=== PATIENT | male | born 1985 | race Caucasian/White ===

== ENCOUNTER 2019-05-19 17:25 | Inpatient (IN) | payer OTHER ==
[~2019-05-19] VITALS: Ht 193 cm; Wt 102.1 kg
[2019-05-19 17:26] VITALS: BP 202/107
[2019-05-19 17:46] LABS: ABSOLUTE NEUTROPHILS 4.9 thou/uL (1.4-8.2); BASOPHILS 0.8 % (0.0-2.0); EOSINOPHILS 2.2 % (0.0-3.0); HEMATOCRIT 50.5 % (42.0-52.0); HEMOGLOBIN 17.4 gm/dL (14.0-18.0); LYMPHOCYTES 29.1 % (24.0-44.0); MCH 30.2 pg (26.0-34.0); MCHC 34.4 g/dL (28.0-37.0); MCV 87.6 fL (80.0-100.0); MONOCYTES 10.8 % (1.0-8.0); PLATELET COUNT 268 thou/uL (150-400); POLYS 57.1 % (36.0-66.0); RBC 5.76 mil/uL (4.50-6.00); RDW 12.8 % (10.5-14.5); WBC 8.6 thou/uL (4.0-11.0)
[2019-05-19 17:53] LABS: ANION GAP 11 mmol/L (7-16); BUN 16 mg/dL (7-18); CALCIUM 9.8 mg/dL (8.5-10.1); CHLORIDE 99 mmol/L (98-107); CO2 29 mmol/L (21-32); CREATININE 1.1 mg/dL (0.7-1.3); GLUCOSE 122 mg/dL (74-106); POTASSIUM 3.4 mmol/L (3.5-5.1); SODIUM 139 mmol/L (136-145)
[2019-05-19 18:04] LABS: ALBUMIN 4.7 g/dL (3.4-5.0); LIPASE 129 U/L (73-393); SGOT 53 U/L (15-37); SGPT 148 U/L (30-65); TOTAL BILIRUBIN 0.6 mg/dL (<0.1-1.0); TOTAL PROTEIN 8.7 g/dL (6.4-8.2); TROPONIN-I <0.06 ng/mL (<0.06)
[2019-05-19 20:27] VITALS: BP 169/109
[2019-05-19 20:42] LABS: CHOLESTEROL 182 mg/dL (<200); HDL CHOLESTEROL 33 mg/dL (>40); LDL CHOLESTEROL 115 mg/dL (<100); TC:HDL 5.5 Ratio (Not establshd); TRIGLYCERIDE 170 mg/dL (<150); VLDL 34 mg/dL (<40)
[2019-05-19 20:44] LABS: SERUM ASSESSMENT Clear
[2019-05-19 20:56] VITALS: BP 160/93
[2019-05-19 21:25] VITALS: BP 163/110
[2019-05-19 23:57] VITALS: BP 142/86
[2019-05-20] VITALS (7 sets, daily range): BP systolic 117–156; BP diastolic 67–91
[2019-05-20 03:10] LABS: GLYCOHEMOGLOBIN (HGB A1C) 5.1 % (4.8-5.6)
[2019-05-20 04:42] LABS: CALCIUM 8.9 mg/dL (8.5-10.1)
[2019-05-20 04:47] LABS: POTASSIUM 4.5 mmol/L (3.5-5.1)
[2019-05-20] MEDS ORDERED: LIPITOR 20 MG T20 M1 PO (09:46)
[2019-05-20] MEDS ORDERED: BENICAR40 MG PO (09:46)
--- NOTE | 2019-05-22 15:58 | EKG ---
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
--- NOTE | 2019-05-22 16:01 | EKG ---
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
== END 2019-05-20 18:45 | disposition home or self-care (01) | DRG 305 ==
LOC: ER 17:25 → EROBS 19:58 → 2N 21:00
PROVIDERS: Nurse Practitioner Family; ADMIT Internal Medicine
DX: I16.0 Hypertensive urgency (principal); I10 Essential (primary) hypertension; F41.9 Anxiety disorder, unspecified; F32.9 Major depressive disorder, single episode, unspecified; E78.5 Hyperlipidemia, unspecified; Z53.29 Procedure and treatment not carried out because of patient's decision for other reasons; R07.9 Chest pain, unspecified; Z82.49 Family history of ischemic heart disease and other diseases of the circulatory system; Z82.3 Family history of stroke; Z83.3 Family history of diabetes mellitus
CPT/HCPCS: 10081

== ENCOUNTER 2019-05-29 18:48 | Emergency (ER) | payer OTHER ==
[~2019-05-29] VITALS: Ht 193 cm; Wt 102.1 kg
[~2019-05-29 18:48] MED LIST: BENICAR40 MG PO; LIPITOR 20 MG T20 M1 PO
[2019-05-29 20:11] LABS: ABSOLUTE NEUTROPHILS 5.5 thou/uL (1.4-8.2); BASOPHILS 0.5 % (0.0-2.0); HEMATOCRIT 48.8 % (42.0-52.0); HEMOGLOBIN 17.1 gm/dL (14.0-18.0); LYMPHOCYTES 21.3 % (24.0-44.0); MCH 30.5 pg (26.0-34.0); MCV 87.2 fL (80.0-100.0); MONOCYTES 10.8 % (1.0-8.0); PLATELET COUNT 214 thou/uL (150-400); POLYS 66.4 % (36.0-66.0); RBC 5.59 mil/uL (4.50-6.00); RDW 12.7 % (10.5-14.5); WBC 8.2 thou/uL (4.0-11.0)
[2019-05-29 20:24] LABS: CALCIUM 9.8 mg/dL (8.5-10.1)
[2019-05-29 20:27] LABS: POTASSIUM 2.9 mmol/L (3.5-5.1)
[2019-05-29] MEDS ORDERED: IBUPROFEN 800800 MG PO (23:27)
[2019-05-29 23:37] VITALS: BP 139/97
--- NOTE | 2019-05-30 10:04 | EKG ---
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 : 1985 Requested By: Jayy Morales Order Number: [id number] MD: Alessandro Cueto Measurements Intervals [place] Rate: 87 P: -26 [place]: 156 QRS: 27 QRSD: 91 T: 31 QT: 355 QTc: 427 Interpretive Statements Sinus rhythm No significant abnormality Compared to ECG 05/20/2019 07:34:14 No significant change was found Electronically Signed On 05-30-2019 10:03:29 LAMP SHADE JOINER by Alessandro Cueto [email or web address] <ELECTRONICALLY SIGNED> By: Alessandro Cueto MD, [facility] 05/30/19 1003 1944 43 Alessandro Cueto MD, FACC /EPI
== END 2019-05-29 23:38 | disposition home or self-care (01) ==
LOC: ER 18:48
PROVIDERS: Emergency Medicine
DX: R53.1 Weakness (principal); E87.6 Hypokalemia; I10 Essential (primary) hypertension; R26.2 Difficulty in walking, not elsewhere classified; F41.9 Anxiety disorder, unspecified; F32.9 Major depressive disorder, single episode, unspecified